=== PATIENT | male | born 1985 | race African-American/Black ===

== ENCOUNTER 2017-05-25 13:57 | Emergency (ER) | payer OTHER ==
[~2017-05-25] VITALS: Ht 177.8 cm; Wt 101.5 kg
[~2017-05-25 13:57] MED LIST: BENZ1TAB PO; DEPA500T PO; RISP.25 PO; SERO300T PO
[2017-05-25 13:59] VITALS: BP 135/69; PULSE 97; RESP 12; TEMP 98.3; O2SAT 99
--- NOTE | 2017-05-25 14:18 | PD ---
Physical Exam Date Seen by Provider: May 25, 2017 Time Seen by Provider: 14:16 Narrative 32-year-old Afro-[place] male who was just released from care home yesterday comes in with right leg pain which has been painful and swollen for the past couple of days. Patient now states there is some erythema, but he denies fever or chills. Patient has a history of blood clots in the past as well as stroke 16 years of age. He has no known drug allergies. Pain is a 7 out of 10. Vital signs are stable. Patient is awaiting medical bed placement. Data Data Last Documented VS Vital Signs Date Time Temp Pulse Resp B/P (MAP) Pulse Ox O2 Delivery O2 Flow Rate FiO2 05/25/17 13:59 98.3 97 12 135/69 (91) 99 MDM Medical Record Reviewed: Yes Supervised Visit with LENORE: Yes Condition: Stable Oniel Ferguson May 25, 2017 14:17
--- NOTE | 2017-05-25 15:54 | RADRPT ---
EXAM DATE/TIME: 05/25/2017 15:04 [facility] COMPARISON: No previous studies available for comparison. INDICATIONS : Left leg pain. MEDICAL HISTORY : Deep venous thrombosis. CVA. Seizures. Diabetes. ADHD. Bipolar disorder. Depression. Anticoagula nt therapy. SURGICAL HISTORY : Brain surgery due to infection. Right arm tendon surgery. ENCOUNTER: Initial ACUITY: 4 - 6 days PAIN SCORE: 10/10 LOCATION: Left leg. TECHNIQUE: Venous ultrasound of the leg was performed from the inguinal ligament to the proximal calf. Real-yazmin e, color Doppler and spectral tracing, compression and augmentation techniques were used. FINDINGS: The examination demonstrates partially occlusive thrombus in the mid and distal septal femoral vein. Note is made of occlusive thrombus within the greater saphenous vein. The remainder of the venous system is patent. CONCLUSION: 1. Exam is positive for partially occlusive thrombus within the saphenofemoral vein at the level of t he distal thigh. 2. There is complete occlusion of the superficial greater saphenous vein. Dane Felix MD on May 25, 2017 at 15:48 Board Certified Radiologist. This report was verified electronically.
[2017-05-25 17:21] LABS: AUTOMATED NEUTROPHIL # 5.3 TH/MM3 (1.8-7.7); BASOPHIL % 0.5 % (0.0-2.0); EOSINOPHIL # 0.1 TH/MM3 (0-0.4); EOSINOPHIL % 0.6 % (0.0-4.0); HEMATOCRIT 39.5 % (39.0-51.0); HEMO FLAGS DIFF FINAL; LYMPH % 30.9 % (9.0-44.0); LYMPHOCYTE # 2.9 TH/MM3 (1.0-4.8); MEAN CELL VOLUME 94.5 FL (80.0-100.0); MEAN CORPUSCULAR HEMOGLOBIN 31.2 PG (27.0-34.0); MONO % 10.6 % (0.0-8.0); NEUT % 57.4 % (16.0-70.0); PLATELET COUNT 249 TH/MM3 (150-450); RED BLOOD COUNT 4.18 MIL/MM3 (4.50-5.90); RED CELL DISTRIBUTION WIDTH 13.6 % (11.6-17.2); WHITE BLOOD COUNT 9.3 TH/MM3 (4.0-11.0)
[2017-05-25 17:28] LABS: APTT (PATIENT) 27.5 SEC (24.3-30.1); INTERNATIONAL NORMALIZED RATIO 0.9 RATIO; PROTHROMBIN TIME - PATIENT 10.4 SEC (9.8-11.6)
[2017-05-25 17:48] LABS: ALKALINE PHOSPHATASE 77 U/L (45-117); ALT (GPT) 29 U/L (12-78); TOTAL BILIRUBIN ADULT 0.2 MG/DL (0.2-1.0)
[2017-05-25 17:51] LABS: ANION GAP 6 MEQ/L (5-15); AST (GOT) 26 U/L (15-37); BICARBONATE 26.1 MEQ/L (21.0-32.0); BLOOD UREA NITROGEN 22 MG/DL (7-18); CHLORIDE 106 MEQ/L (98-107); GLOMERULAR FILTRATION RATE 72 ML/MIN (>89); SODIUM (NA) 138 MEQ/L (136-145)
--- NOTE | 2017-05-25 17:54 | PD ---
HPI Chief Complaint: Musculoskeletal Complaint Time Seen by Provider: 17:05 Travel History International Travel<30 days: No Contact w/Intl Traveler<30days: No Traveled to known affect area: No History of Present Illness HPI Patient is a 31-year-old male presenting to the emergency room for evaluation of left leg pain and swelling. Patient states it's been swollen for several years. He presented today because his mother wanted him to be evaluated since he just got out of retirement. Patient reports a history of CVA at age 16 as well as DVTs at the same time. He has not been on any anticoagulation since then. Patient's past medical history significant for bipolar disorder, seizure disorder, CVA. Patient states the pain is a 4 out of 10. He states it's aching and throbbing. The edema that is present and has been chronic as well. PFSH Past Medical History ADHD: Yes Bipolar Disorder: Yes Depression: Yes Cerebrovascular Accident: Yes (16 Y/O) Diminished Hearing: No Seizures: Yes Past Surgical History Neurologic Surgery: Yes (BRAIN R/T INFECTION) Other Surgery: Yes (TENDONS RIGHT ARM.) Social History Alcohol Use: No Tobacco Use: No Substance Use: No Allergies-Medications (Allergen,Severity, Reaction): Coded Allergies: No Known Allergies (Verified , 05/25/17) Reported Meds & Prescriptions Reported Meds & Active Scripts Active Reported Cogentin (Benztropine Mesylate) 2 Mg Tab 2 Mg PO BID Seroquel 300 mg (Quetiapine Fumarate) 300 Mg Tab 600 Mg PO BID Depakote 500 mg (Divalproex Sodium) 500 Mg Tab 2,000 Mg PO BID Risperdal (Risperidone) 0.25 Mg Tab 2 Mg PO BID UNKNOWN DOSE Review of Systems Except as stated in HPI: all other systems reviewed are Neg Musculoskeletal: Positive: Edema, Pain Physical Exam Narrative GENERAL: Well-developed, well-nourished, alert male SKIN: Warm and dry. HEAD: Atraumatic. Normocephalic. EYES: Pupils equal and round. No scleral icterus. No injection or drainage. ENT: No nasal bleeding or discharge. Mucous membranes pink and moist. NECK: Trachea midline. No JVD. CARDIOVASCULAR: Regular rate and rhythm. RESPIRATORY: No accessory muscle use. Clear to auscultation. Breath sounds equal bilaterally. GASTROINTESTINAL: Abdomen soft, non-tender, nondistended. Hepatic and splenic margins not palpable. MUSCULOSKELETAL: Extremities without clubbing, cyanosis. No obvious deformities. 1+ edema to left lower leg. 2+ dorsalis pedal pulses bilaterally. NEUROLOGICAL: Awake and alert. No obvious cranial nerve deficits. Motor grossly within normal limits. Five out of 5 muscle strength in the arms and legs. Normal speech. PSYCHIATRIC: Appropriate mood and affect; insight and judgment normal. Data Data Last Documented VS Vital Signs Date Time Temp Pulse Resp B/P (MAP) Pulse Ox O2 Delivery O2 Flow Rate FiO2 05/25/17 13:59 98.3 97 12 135/69 (91) 99 Orders Orders Us Leg Venous Doppler (05/25/17 15:12) Complete Blood Count With Diff (05/25/17 16:58) Comprehensive Metabolic Panel (05/25/17 16:58) Act Partial Throm Time (Ptt) (05/25/17 16:58) Prothrombin Time / Inr (Pt) (05/25/17 16:58) Apixaban (Eliquis) (05/25/17 18:00) Labs Laboratory Tests Test 05/25/17 17:03 White Blood Count 9.3 TH/MM3 Red Blood Count 4.18 MIL/MM3 Hemoglobin 13.0 GM/DL Hematocrit 39.5 % Mean Corpuscular Volume 94.5 FL Mean Corpuscular Hemoglobin 31.2 PG Mean Corpuscular Hemoglobin Concent 33.0 % Red Cell Distribution Width 13.6 % Platelet Count 249 TH/MM3 Mean Platelet Volume 8.4 FL Neutrophils (%) (Auto) 57.4 % Lymphocytes (%) (Auto) 30.9 % Monocytes (%) (Auto) 10.6 % Eosinophils (%) (Auto) 0.6 % Basophils (%) (Auto) 0.5 % Neutrophils # (Auto) 5.3 TH/MM3 Lymphocytes # (Auto) 2.9 TH/MM3 Monocytes # (Auto) 1.0 TH/MM3 Eosinophils # (Auto) 0.1 TH/MM3 Basophils # (Auto) 0.0 TH/MM3 CBC Comment DIFF FINAL Differential Comment Prothrombin Time 10.4 SEC Prothromb Time International Ratio 0.9 RATIO Activated Partial Thromboplast Time 27.5 SEC Blood Urea Nitrogen 22 MG/DL Creatinine 1.39 MG/DL Random Glucose 86 MG/DL Total Protein 7.9 GM/DL Albumin 3.6 GM/DL Calcium Level 8.8 MG/DL Alkaline Phosphatase 77 U/L Aspartate Amino Transf (AST/SGOT) 26 U/L Alanine Aminotransferase (ALT/SGPT) 29 U/L Total Bilirubin 0.2 MG/DL Sodium Level 138 MEQ/L Potassium Level 4.0 MEQ/L Chloride Level 106 MEQ/L Carbon Dioxide Level 26.1 MEQ/L Anion Gap 6 MEQ/L Estimat Glomerular Filtration Rate 72 ML/MIN MDM Medical Decision Making Medical Screen Exam Complete: Yes Emergency Medical Condition: Yes Interpretation(s) Last Impressions Lower Extremity Ultrasound 05/25/17 1512 Signed Impressions: Service Date/Time: , May 25, 2017 15:04 - CONCLUSION: 1. Exam is positive for partially occlusive thrombus within the saphenofemoral vein at the level of the distal thigh. 2. There is complete occlusion of the superficial greater saphenous vein. Dane Felix MD Laboratory Tests Test 05/25/17 17:03 White Blood Count 9.3 TH/MM3 Red Blood Count 4.18 MIL/MM3 Hemoglobin 13.0 GM/DL Hematocrit 39.5 % Mean Corpuscular Volume 94.5 FL Mean Corpuscular Hemoglobin 31.2 PG Mean Corpuscular Hemoglobin Concent 33.0 % Red Cell Distribution Width 13.6 % Platelet Count 249 TH/MM3 Mean Platelet Volume 8.4 FL Neutrophils (%) (Auto) 57.4 % Lymphocytes (%) (Auto) 30.9 % Monocytes (%) (Auto) 10.6 % Eosinophils (%) (Auto) 0.6 % Basophils (%) (Auto) 0.5 % Neutrophils # (Auto) 5.3 TH/MM3 Lymphocytes # (Auto) 2.9 TH/MM3 Monocytes # (Auto) 1.0 TH/MM3 Eosinophils # (Auto) 0.1 TH/MM3 Basophils # (Auto) 0.0 TH/MM3 CBC Comment DIFF FINAL Differential Comment Prothrombin Time 10.4 SEC Prothromb Time International Ratio 0.9 RATIO Activated Partial Thromboplast Time 27.5 SEC Blood Urea Nitrogen 22 MG/DL Creatinine 1.39 MG/DL Random Glucose 86 MG/DL Total Protein 7.9 GM/DL Albumin 3.6 GM/DL Calcium Level 8.8 MG/DL Alkaline Phosphatase 77 U/L Aspartate Amino Transf (AST/SGOT) 26 U/L Alanine Aminotransferase (ALT/SGPT) 29 U/L Total Bilirubin 0.2 MG/DL Sodium Level 138 MEQ/L Potassium Level 4.0 MEQ/L Chloride Level 106 MEQ/L Carbon Dioxide Level 26.1 MEQ/L Anion Gap 6 MEQ/L Estimat Glomerular Filtration Rate 72 ML/MIN Vital Signs Date Time Temp Pulse Resp B/P (MAP) Pulse Ox O2 Delivery O2 Flow Rate FiO2 05/25/17 13:59 98.3 97 12 135/69 (91) 99 Differential Diagnosis DVT versus coagulopathy versus other Narrative Course Patient is a 31-year-old male presenting for evaluation of left leg swelling and pain. Ultrasound ordered while patient was waiting for a bed. His vital signs are stable, he has a history of CVA with residual left-sided weakness. He was just released from retirement, the leg has been swollen and painful for several months if not years. Ultrasound is positive for partially occlusive thrombus within the saphenofemoral vein at the level of the distal thigh. There is complete occlusion of the superficial greater saphenous vein. CBC, chemistry, coags reviewed, no acute findings identified. Patient will be started on Eliquis, first dose will be given now. Pt is to follow up with PCP, mother is present for teaching. He was advised to return to ED for any new or worsening symptoms. They verbalized understanding of instructions. Pt is stable for discharge. Diagnosis Primary Impression: DVT (deep venous thrombosis) Qualified Codes: I82.402 - Acute embolism and thrombosis of unspecified deep veins of left lower extremity Referrals: Primary Care Physician 2 days Patient Instructions: Deep Vein Thrombosis Prevention (ED), General Instructions Additional Instructions: Follow-up with your primary doctor Take medication as directed, do not skip doses Keep extremity elevated to help alleviate swelling Return to emergency department for any new or worsening symptoms Eliquis dose is 10 mg twice a day for the first week and then 5 mg twice a day after that. Please be aware of dosing instructions. Med/Other Pt SpecificInfo: Prescription(s) given Scripts Apixaban (Eliquis) 5 Mg Tab 10 MG PO BID for Blood Clot Prevention, #14 TAB 0 Refills Prov: Tiffany Desouza 05/25/17 Apixaban (Eliquis) 5 Mg Tab 5 MG PO BID for Blood Clot Prevention, #60 TAB 0 Refills Prov: Tiffany Desouza 05/25/17 Disposition: 01 DISCHARGE HOME Condition: Stable Tiffany Desouza May 25, 2017 17:54
[2017-05-25] MEDS ORDERED: APIXABAN 5 MG TABLET PO ONE (18:00)
[2017-05-25] MEDS ORDERED: APIX5TAB PO ×2 (18:33→20:17)
--- NOTE | 2017-05-25 20:17 | PD ---
Physical Exam Date Seen by Provider: May 25, 2017 Time Seen by Provider: 20:16 Narrative Patient call the emergency department stating he lost his prescriptions for Eliquis. Data Data Last Documented VS Vital Signs Date Time Temp Pulse Resp B/P (MAP) Pulse Ox O2 Delivery O2 Flow Rate FiO2 05/25/17 18:10 82 18 05/25/17 13:59 98.3 135/69 (91) 99 Orders Orders Us Leg Venous Doppler (05/25/17 15:12) Complete Blood Count With Diff (05/25/17 16:58) Comprehensive Metabolic Panel (05/25/17 16:58) Act Partial Throm Time (Ptt) (05/25/17 16:58) Prothrombin Time / Inr (Pt) (05/25/17 16:58) Apixaban (Eliquis) (05/25/17 18:00) Labs Laboratory Tests Test 05/25/17 17:03 White Blood Count 9.3 TH/MM3 Red Blood Count 4.18 MIL/MM3 Hemoglobin 13.0 GM/DL Hematocrit 39.5 % Mean Corpuscular Volume 94.5 FL Mean Corpuscular Hemoglobin 31.2 PG Mean Corpuscular Hemoglobin Concent 33.0 % Red Cell Distribution Width 13.6 % Platelet Count 249 TH/MM3 Mean Platelet Volume 8.4 FL Neutrophils (%) (Auto) 57.4 % Lymphocytes (%) (Auto) 30.9 % Monocytes (%) (Auto) 10.6 % Eosinophils (%) (Auto) 0.6 % Basophils (%) (Auto) 0.5 % Neutrophils # (Auto) 5.3 TH/MM3 Lymphocytes # (Auto) 2.9 TH/MM3 Monocytes # (Auto) 1.0 TH/MM3 Eosinophils # (Auto) 0.1 TH/MM3 Basophils # (Auto) 0.0 TH/MM3 CBC Comment DIFF FINAL Differential Comment Prothrombin Time 10.4 SEC Prothromb Time International Ratio 0.9 RATIO Activated Partial Thromboplast Time 27.5 SEC Blood Urea Nitrogen 22 MG/DL Creatinine 1.39 MG/DL Random Glucose 86 MG/DL Total Protein 7.9 GM/DL Albumin 3.6 GM/DL Calcium Level 8.8 MG/DL Alkaline Phosphatase 77 U/L Aspartate Amino Transf (AST/SGOT) 26 U/L Alanine Aminotransferase (ALT/SGPT) 29 U/L Total Bilirubin 0.2 MG/DL Sodium Level 138 MEQ/L Potassium Level 4.0 MEQ/L Chloride Level 106 MEQ/L Carbon Dioxide Level 26.1 MEQ/L Anion Gap 6 MEQ/L Estimat Glomerular Filtration Rate 72 ML/MIN [facility] Medical Record Reviewed: Yes Supervised Visit with LENORE: No Narrative Course Patient will be provided with prescriptions as previously written. Diagnosis Primary Impression: DVT (deep venous thrombosis) Qualified Codes: I82.402 - Acute embolism and thrombosis of unspecified deep veins of left lower extremity Referrals: Primary Care Physician 2 days Patient Instructions: General Instructions, Deep Vein Thrombosis Prevention (ED ) Departure Forms: Tests/Procedures Additional Instruction: Follow-up with your primary doctor Take medication as directed, do not skip doses Keep extremity elevated to help alleviate swelling Return to emergency department for any new or worsening symptoms Eliquis dose is 10 mg twice a day for the first week and then 5 mg twice a day after that. Please be aware of dosing instructions. Scripts Apixaban (Eliquis) 5 Mg Tab 10 MG PO BID for Blood Clot Prevention, #14 TAB 0 Refills Prov: Tiffany Desouza 05/25/17 Apixaban (Eliquis) 5 Mg Tab 5 MG PO BID for Blood Clot Prevention, #60 TAB 0 Refills Prov: Tiffany Desouza 05/25/17 Disposition: 01 DISCHARGE HOME Condition: Stable Tiffany Desouza May 25, 2017 20:17
== END 2017-05-25 18:40 | disposition home or self-care (01) ==
LOC: NEPD 13:57
DX: I82.812 Embolism and thrombosis of superficial veins of left lower extremity (principal); F31.9 Bipolar disorder, unspecified; G40.909 Epilepsy, unspecified, not intractable, without status epilepticus; F90.9 Attention-deficit hyperactivity disorder, unspecified type; Z86.73 Personal history of transient ischemic attack (TIA), and cerebral infarction without residual deficits; Z79.899 Other long term (current) drug therapy
CPT/HCPCS: 80053; 85025; 85610; 85730; 93971; 99285

== ENCOUNTER 2017-05-27 18:22 | Emergency (ER) | payer OTHER ==
[~2017-05-27] VITALS: Ht 177.8 cm; Wt 94.0 kg
[~2017-05-27 18:22] MED LIST changes: +APIX5TAB PO
[2017-05-27 18:34] VITALS: BP 125/96; PULSE 102; RESP 20; TEMP 97.8; O2SAT 97
[2017-05-27] MEDS ORDERED: LIDOCAINE 1%/EPINEPHrine 1:100,000 SOLN 20 ML VIAL INFIL ONE (20:15)
[2017-05-27] MEDS ORDERED: SHOT (20:17)
[2017-05-27] MEDS ORDERED: BENZ0.5T PO (20:17)
[2017-05-27] MEDS ORDERED: DIVA250ER PO (20:17)
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
[2017-05-27] MEDS ORDERED: LIDOCAINE 2%/EPINEPHrine 1:100,000 20ML MDV INFIL ONE (21:00)
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
--- NOTE | 2017-05-27 22:03 | PD ---
Physical Exam Time Seen by Provider: 21:59 Data Data Last Documented VS Vital Signs Date Time Temp Pulse Resp B/P (MAP) Pulse Ox O2 Delivery O2 Flow Rate FiO2 05/27/17 20:09 Room Air 05/27/17 18:34 97.8 102 20 125/96 (106) [address] Facial Bones W/O Iv Cont (05/27/17 20:11) Finger ([id number]) (05/27/17 20:11) Lidocai-Epi 2%-1:100,000 Inj (Xylocaine- (05/27/17 21:00) MDM Supervised Visit with LENORE: Yes Procedures Procedure Narrative LACERATION LOCATION: Right zygomatic LENGTH: 1 cm REPAIR: The area of the laceration was cleansed of gross contamination and explored lightly. Laceration was rather superficial. The wound was closed using Dermabond and a Band-Aid was placed over the wound. The patient was advised to keep the dressing clean and dry. Patient tolerated the procedure well. Diagnosis Primary Impression: Facial laceration Qualified Codes: S01.81XA - Laceration without foreign body of other part of head, initial encounter Referrals: Primary Care Physician Patient Instructions: General Instructions, Facial Laceration (ED) Disposition: 01 DISCHARGE HOME Condition: Stable Katie Victor May 27, 2017 22:03
== END 2017-05-27 22:23 | disposition home or self-care (01) ==
LOC: NEPD 18:22
DX: S01.411A Laceration without foreign body of right cheek and temporomandibular area, initial encounter (principal); X58.XXXA Exposure to other specified factors, initial encounter; Y29.XXXA Contact with blunt object, undetermined intent, initial encounter; Z72.0 Tobacco use; Z86.718 Personal history of other venous thrombosis and embolism; Z79.01 Long term (current) use of anticoagulants
CPT/HCPCS: 12011; 70486; 73140

== ENCOUNTER 2017-09-24 13:34 | Emergency (ER) | payer OTHER ==
[2017-09-24] MEDS: TETANUS/DIPHTHERIA TOXOID ADULT 0.5 ML VIAL IM (14:42)
== END 2017-09-24 15:19 | disposition home or self-care (01) ==
LOC: NEPD 13:34
DX: I82.502 Chronic embolism and thrombosis of unspecified deep veins of left lower extremity (principal); M79.89 Other specified soft tissue disorders; F90.9 Attention-deficit hyperactivity disorder, unspecified type; F31.9 Bipolar disorder, unspecified; R56.9 Unspecified convulsions; F17.200 Nicotine dependence, unspecified, uncomplicated; Z86.73 Personal history of transient ischemic attack (TIA), and cerebral infarction without residual deficits; Z23 Encounter for immunization
CPT/HCPCS: 90471; 90714; 99283-25

== ENCOUNTER 2017-12-23 18:13 | Emergency (ER) | payer OTHER ==
[~2017-12-23] VITALS: Ht 180.3 cm; Wt 115.0 kg
[~2017-12-23 18:13] MED LIST changes: +BENZ0.5T PO; -BENZ1TAB PO; -DEPA500T PO; +DIVA250ER PO; -RISP.25 PO; -SERO300T PO; +SHOT
[2017-12-23 18:23] VITALS: BP 140/72; PULSE 100; RESP 16; TEMP 98; O2SAT 97
[2017-12-23] MEDS ORDERED: AUGM500T7 PO (18:29)
[2017-12-23] MEDS ORDERED: IBUP1TAB7 PO (18:29)
--- NOTE | 2017-12-23 18:29 | PD ---
HPI Chief Complaint: Dog bite left leg Time Seen by Provider: 18:20 Travel History International Travel<30 days: No Contact w/Intl Traveler<30days: No History of Present Illness HPI 32-year-old -[place] male presents emergency department via EMS for dog bite to the left zambrano. Patient states it was his neighbor's dog. He is unsure of the dogs shots status. Animal control has not been called yet. Patient states it was a teacher while a type dog. He has 1 puncture wound to the left lower anterior zambrano. There is minimal bleeding. He states his tetanus is up-to -date. He is complaining of 9 out of 10 pain. He has no known drug allergies. PFSH Past Medical History ADHD: Yes Bipolar Disorder: Yes Depression: Yes Cerebrovascular Accident: Yes (16 Y/O) Diabetes: No Diminished Hearing: No Deep Vein Thrombosis: Yes (L Leg) Seizures: Yes Past Surgical History Neurologic Surgery: Yes (BRAIN R/T INFECTION) Other Surgery: Yes (TENDONS RIGHT ARM.) Social History Alcohol Use: Yes (few beers) Tobacco Use: Yes (1ppd) Substance Use: Yes (marijuana) Allergies-Medications (Allergen,Severity, Reaction): Coded Allergies: No Known Allergies (Verified Adverse Reaction, Unknown, 09/24/17) Reported Meds & Prescriptions Reported Meds & Active Scripts Active Eliquis (Apixaban) 5 Mg Tab 5 Mg PO BID Reported [shot] Benztropine (Benztropine Mesylate) 0.5 Mg Tab 2 Mg PO BID Depakote ER (Divalproex Sodium) 250 Mg Steph 250 Mg PO BID Review of Systems Except as stated in HPI: all other systems reviewed are Neg General / Constitutional: No: Fever Eyes: No: Visual changes HENT: No: Headaches Cardiovascular: No: Chest Pain or Discomfort Respiratory: No: Shortness of Breath Gastrointestinal: No: Abdominal Pain Genitourinary: No: Dysuria Musculoskeletal: No: Pain Skin: Positive Lesions (See history of present illness per), No Rash Neurologic: No: Weakness Psychiatric: No: Depression Endocrine: No: Polydipsia Hematologic/Lymphatic: No: Easy Bruising Physical Exam Narrative GENERAL: Patient appears upset and in moderate distress. SKIN: Warm and dry. Normal color. Normal turgor. Patient has single puncture wound to the left lower anterior zambrano with minimal bleeding. It is not amenable to closure. HEAD: Atraumatic. Normocephalic. EYES: Pupils equal and round. No scleral icterus. No injection or drainage. ENT: No nasal bleeding or discharge. Mucous membranes pink and moist. Pharynx is clear. NECK: Trachea midline. No JVD. Supple and nontender. CARDIOVASCULAR: Regular rate and rhythm. RESPIRATORY: No accessory muscle use. Clear to auscultation. Breath sounds equal bilaterally. GASTROINTESTINAL: Abdomen soft, non-tender, nondistended. Hepatic and splenic margins not palpable. MUSCULOSKELETAL: Extremities without clubbing, cyanosis, or edema. No obvious deformities. NEUROLOGICAL: Awake and alert. No obvious cranial nerve deficits. Motor grossly within normal limits. Five out of 5 muscle strength in the arms and legs. Normal speech. PSYCHIATRIC: Appropriate mood and affect; insight and judgment normal. MDM Medical Decision Making Medical Screen Exam Complete: Yes Emergency Medical Condition: Yes Differential Diagnosis Dog bite. Puncture wound. Need for antibiotic. Narrative Course Patient is given Augmentin 875 mg p.o. now. Patient is given ibuprofen 800 mg p.o. now. Patient is to follow-up with animal control regarding this incident. Patient should take Augmentin 875 twice daily 5 days. Patient should take ibuprofen 800 mg 3 times daily for 5 days. Patient is to keep the area clean and dressed. Patient to follow-up with symptoms worsen as needed. Diagnosis Primary Impression: Dog bite of left lower leg Qualified Codes: S81.852A - Open bite, left lower leg, initial encounter; W54.0XXA - Bitten by dog, initial encounter Patient Instructions: Animal Bite (ED) Additional Instructions: Patient is given Augmentin 875 mg p.o. now. Patient is given ibuprofen 800 mg p.o. now. Patient is to follow-up with animal control regarding this incident. Patient should take Augmentin 875 twice daily 5 days. Patient should take ibuprofen 800 mg 3 times daily for 5 days. Patient is to keep the area clean and dressed. Patient to follow-up with symptoms worsen as needed. Med/Other Pt SpecificInfo: Prescription(s) given, Wound Care Disposition: DISCHARGE HOME Condition: Stable Oniel Ferguson Dec 23, 2017 18:29
[2017-12-23] MEDS ORDERED: AMOXICILLIN/CLAVULANATE K 875 MG TAB PO ONE (18:30)
[2017-12-23] MEDS ORDERED: IBUPROFEN 800 MG TAB PO ONE (18:30)
== END 2017-12-23 18:56 | disposition home or self-care (01) ==
LOC: NEPD 18:13
DX: S81.852A Open bite, left lower leg, initial encounter (principal); W54.0XXA Bitten by dog, initial encounter; F90.9 Attention-deficit hyperactivity disorder, unspecified type; F31.9 Bipolar disorder, unspecified; F17.210 Nicotine dependence, cigarettes, uncomplicated; Z86.718 Personal history of other venous thrombosis and embolism; Z86.73 Personal history of transient ischemic attack (TIA), and cerebral infarction without residual deficits; Z79.01 Long term (current) use of anticoagulants
CPT/HCPCS: 99283

== ENCOUNTER 2017-12-23 21:13 | Emergency (ER) | payer OTHER ==
[~2017-12-23] VITALS: Ht 180.3 cm; Wt 81.8 kg
[~2017-12-23 21:13] MED LIST changes: +AUGM500T7 PO; +IBUP1TAB7 PO
[2017-12-23 21:30] VITALS: BP 122/74; PULSE 95; RESP 18; TEMP 98; O2SAT 98
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
[2017-12-23 21:37] VITALS: BP 122/74; PULSE 91; RESP 18; O2SAT 99
[2017-12-23] MEDS ORDERED: TETANUS/DIPHTHERIA TOXOID ADULT 0.5 ML VIAL IM ONE (21:45)
== END 2017-12-23 21:59 | disposition home or self-care (01) ==
LOC: NEPD 21:13
DX: F19.10 Other psychoactive substance abuse, uncomplicated (principal); S51.811A Laceration without foreign body of right forearm, initial encounter; W25.XXXA Contact with sharp glass, initial encounter; Y92.009 Unspecified place in unspecified non-institutional (private) residence as the place of occurrence of the external cause; Z23 Encounter for immunization; F90.9 Attention-deficit hyperactivity disorder, unspecified type; F31.9 Bipolar disorder, unspecified; F17.210 Nicotine dependence, cigarettes, uncomplicated; Z86.73 Personal history of transient ischemic attack (TIA), and cerebral infarction without residual deficits; Z86.718 Personal history of other venous thrombosis and embolism; Z79.01 Long term (current) use of anticoagulants; Z79.899 Other long term (current) drug therapy
CPT/HCPCS: 90471; 90714; 99282